=== PATIENT | male | born 1970 | race Caucasian/White ===

== ENCOUNTER → 2017-04-28 | Outpatient (CLI) | payer BC ==
[~2017-04-28] MED LIST: DITR5TAB PO; KETO30IN4; LIPI20TA PO; OXYB5TAB10 PO; TYLE325T5 PO
[2017-04-28 13:30] LABS: BASO # 0.1 K/mm3 (0.0-0.2); BASO % 1.5 % (0.0-1.0); EOS # 0.2 K/mm3 (0.0-0.50); EOS % 4.3 % (0.0-3.0); LARGE UNSTAINED CELL # 0.1 K/mm3 (0.0-0.4); LARGE UNSTAINED CELL % 1.9 % (0.0-4.0); LYMPH # 2.1 K/mm3 (1.5-4.5); MEAN CORPUSCULAR HEMOGLOBIN 31.7 pg (27.0-33.0); MEAN CORPUSCULAR HGB CONC 34.4 g/dl (32.0-36.5); MONO # 0.4 K/mm3 (0.0-0.8); MONO % 6.7 % (0.0-5.0); NEUTROPHILS # 2.8 K/mm3 (1.8-7.7); NEUTROPHILS % 50.5 % (36.0-66.0); PLATELET COUNT, AUTOMATED 218 k/mm3 (150-450); RED CELL DISTRIBUTION WIDTH 12.8 % (11.5-14.5); WHITE BLOOD COUNT 5.6 K/mm3 (4.0-10.0)
[2017-04-28 13:39] LABS: ALKALINE PHOSPHATASE 45 U/L (45-117); ALT/SGPT 73 U/L (12-78); ANION GAP 8 MEQ/L (8-16); AST/SGOT 27 U/L (15-37); BILIRUBIN,TOTAL 0.8 MG/DL (0.2-1.0); BLOOD UREA NITROGEN 14 MG/DL (7-18); CALCIUM LEVEL 8.8 MG/DL (8.5-10.1); CARBON DIOXIDE LEVEL 28 MEQ/L (21-32); CHLORIDE LEVEL 106 MEQ/L (98-107); CHOLESTEROL LEVEL 239 MG/DL (<200); CREATININE FOR GFR 0.99 MG/DL (0.70-1.30); GLOMERULAR FILTRATION RATE > 60.0 (>60); GLUCOSE, FASTING 128 MG/DL (70-105); POTASSIUM SERUM 4.9 MEQ/L (3.5-5.1); SODIUM LEVEL 142 MEQ/L (136-145); TRIGLYCERIDES LEVEL 128 MG/DL (<150)
[2017-04-28 13:40] LABS: TOTAL PROTEIN 6.5 GM/DL (6.4-8.2)
== END ==
LOC: M WUC 10:28
PROVIDERS: ATTEND Nurse Practitioner Family
DX: R53.83 Other fatigue (principal); R73.02 Impaired glucose tolerance (oral); E78.5 Hyperlipidemia, unspecified

== ENCOUNTER → 2017-08-13 | Outpatient (REF) | payer BC | LOC: M SMT 13:56 | PROVIDERS: ATTEND Urology | DX: Z30.2 Encounter for sterilization (principal) ==

== ENCOUNTER 2018-04-05 12:15 | Emergency (ER) | payer BC ==
[2018-04-05 12:45] LABS: RED BLOOD COUNT 5.04 10^6/uL (4.30-6.10); WHITE BLOOD COUNT 7.7 10^3/uL (4.0-10.0)
[2018-04-05 12:46] LABS: BASO # 0.1 10^3/uL (0.0-0.2); BASO % 0.7 % (0.0-1.0); EOS # 0.1 10^3/uL (0.0-0.50); EOS % 1.3 % (0.0-3.0); HEMATOCRIT 45.3 % (42.0-52.0); HEMOGLOBIN 15.8 g/dl (13.5-17.5); IMMATURE GRANULOCYTE % 0.8 % (0-3.0); LYMPH # 1.9 10^3/uL (1.5-4.5); LYMPH % 25.2 % (24.0-44.0); MEAN CORPUSCULAR HEMOGLOBIN 31.3 pg (27.0-33.0); MEAN CORPUSCULAR HGB CONC 34.9 g/dl (32.0-36.5); MEAN CORPUSCULAR VOLUME 89.9 fl (80.0-96.0); MONO # 0.6 10^3/uL (0.0-0.8); MONO % 7.6 % (0.0-5.0); NEUTROPHILS # 4.9 10^3/uL (1.8-7.7); NEUTROPHILS % 64.4 % (36.0-66.0); PLATELET COUNT, AUTOMATED 196 10^3/uL (150-450); RED CELL DISTRIBUTION WIDTH 12.1 % (11.5-14.5)
[2018-04-05 12:56] LABS: INR 1.02; PARTIAL THROMBOPLASTIN TIME 25.8 SECONDS (25.4-37.6); PROTHROMBIN TIME 13.5 SECONDS (12.1-14.4)
[2018-04-05 13:16] LABS: ALBUMIN 3.7 GM/DL (3.2-5.2); ALBUMIN/GLOBULIN RATIO 1.37 (1.00-1.93); ALKALINE PHOSPHATASE 56 U/L (45-117); ALT/SGPT 79 U/L (12-78); ANION GAP 8 MEQ/L (8-16); AST/SGOT 33 U/L (7-37); BILIRUBIN,DIRECT 0.2 MG/DL (0.0-0.2); BILIRUBIN,TOTAL 0.6 MG/DL (0.2-1.0); BLOOD UREA NITROGEN 14 MG/DL (7-18); CALCIUM LEVEL 8.2 MG/DL (8.5-10.1); CARBON DIOXIDE LEVEL 24 MEQ/L (21-32); CHLORIDE LEVEL 107 MEQ/L (98-107); CPK CREATINE PHOSPHOKINASE 201 U/L (39-308); CREATININE FOR GFR 1.09 MG/DL (0.70-1.30); FREE T4 1.06 NG/DL (0.76-1.46); GLOMERULAR FILTRATION RATE > 60.0 (>60); GLUCOSE, FASTING 210 MG/DL (70-100); LIPASE 96 U/L (73-393); POTASSIUM SERUM 4.4 MEQ/L (3.5-5.1); SODIUM LEVEL 139 MEQ/L (136-145); TOTAL PROTEIN 6.4 GM/DL (6.4-8.2); TROPONIN I < 0.02 NG/ML (< 0.10)
[2018-04-05] MEDS: NITROGLYCERIN 0.4 MG SUBL TABLET SL ×3 (13:18→13:31)
[2018-04-05 13:21] LABS: CK-MB VALUE MASS 1.3 NG/ML (<3.6); MB/CK RELATIVE INDEX 0.64 (< OR =4); THYROID STIMULATING HORMONE 0.682 uIU/ML (0.358-3.740)
[2018-04-05] MEDS ORDERED: ISOVUE-370 76% 100ML VIAL (Q9967) As Ordered (14:18)
[2018-04-05] MEDS: MORPHINE 4 MG/ML 1ML VIAL/SYRINGE (J2270) IV ×2 (14:59→16:17)
[2018-04-05] MEDS: ONDANSETRON 4MG/2ML VIAL (J2405) IV (15:51)
[2018-04-05] MEDS: NS 1,000 ML IV (15:55)
[2018-04-05 16:30] LABS: CK-MB VALUE MASS 1.1 NG/ML (<3.6); CPK CREATINE PHOSPHOKINASE 183 U/L (39-308); TROPONIN I < 0.02 NG/ML (< 0.10)
[2018-04-05] MEDS: PANTOPRAZOLE 40MG INJ (PROTONIX) (C9113) IV (17:16)
[2018-04-05] MEDS: GI COCKTAIL 50ML BTL(HYOSCYAMINE/MAALOX/LIDOCAINE VISCOUS)(1:3:1) PO (17:16)
[2018-04-05 20:18] LABS: BEDSIDE GLUCOSE 76 MG/DL (70-105)
[2018-04-05 20:50] LABS: CK-MB VALUE MASS 1.1 NG/ML (<3.6); CPK CREATINE PHOSPHOKINASE 154 U/L (39-308); MB/CK RELATIVE INDEX 0.71 (< OR =4); TROPONIN I < 0.02 NG/ML (< 0.10)
[2018-04-05] MEDS ORDERED: KETOROLAC 30 MG/ML VIAL (J1885) As Ordered (22:26)
[2018-04-05] MEDS: KETOROLAC 30 MG/ML VIAL (J1885) IV (22:30)
== END 2018-04-05 22:58 | disposition home or self-care (01) ==
LOC: M ED 12:15
DX: R07.9 Chest pain, unspecified (principal); E11.9 Type 2 diabetes mellitus without complications; E78.9 Disorder of lipoprotein metabolism, unspecified; Z87.442 Personal history of urinary calculi; Z82.49 Family history of ischemic heart disease and other diseases of the circulatory system; Z79.899 Other long term (current) drug therapy
CPT/HCPCS: C9113

== ENCOUNTER → 2018-04-08 | Outpatient (CLI) | payer BC ==
[2018-04-08 14:05] LABS: CHOLESTEROL LEVEL 187 MG/DL (<200); CHOLESTEROL RISK RATIO 3.666 (<5); HDL CHOLESTEROL 51 MG/DL (>40); LDL CHOLESTEROL 109.8 MG/DL (<100); NON-HDL-C 136 MG/DL; TRIGLYCERIDES LEVEL 131 MG/DL (<150)
== END ==
LOC: M WUC 09:00
DX: E78.4 Other hyperlipidemia (principal)
CPT/HCPCS: 80061

== ENCOUNTER → 2018-04-10 | Outpatient (CLI) | payer BC ==
[~2018-04-10] MED LIST changes: -DITR5TAB PO; +GASTROGRAFIN SOLUTION 30ML (Q9963) As Ordered; +ISOVUE-370 76% 100ML VIAL (Q9967) As Ordered; -KETO30IN4; -LIPI20TA PO; -OXYB5TAB10 PO; -TYLE325T5 PO
== END ==
LOC: M RAD 16:17
DX: R10.9 Unspecified abdominal pain (principal)
CPT/HCPCS: Q9963

== ENCOUNTER → 2018-11-20 | Outpatient (CLI) | payer BC ==
[~2018-11-20] MED LIST changes: +DITR5TAB PO; -GASTROGRAFIN SOLUTION 30ML (Q9963) As Ordered; -ISOVUE-370 76% 100ML VIAL (Q9967) As Ordered; +KETO30IN4; +LIPI20TA PO; +NAPR-50 PO; +OXYB5TAB10 PO; +PROT1TAB2 PO; +TYLE325T5 PO
[2018-11-20 10:06] LABS: CHOLESTEROL RISK RATIO 4.638 (<5)
== END ==
LOC: M WUC 08:05
PROVIDERS: ATTEND Internal Medicine Cardiovascular Disease
DX: E11.9 Type 2 diabetes mellitus without complications (principal); I25.10 Atherosclerotic heart disease of native coronary artery without angina pectoris; Z82.49 Family history of ischemic heart disease and other diseases of the circulatory system

== ENCOUNTER → 2019-06-18 | Outpatient (CLI) | payer BC ==
[~2019-06-18] MED LIST changes: -NAPR-50 PO; +NAPR-837 PO
[2019-06-18 20:10] LABS: CHOLESTEROL RISK RATIO 4.731 (<5)
== END ==
LOC: M WUC 11:17
PROVIDERS: ATTEND Physician Assistant
DX: I25.10 Atherosclerotic heart disease of native coronary artery without angina pectoris (principal)

== ENCOUNTER → 2019-06-18 | Outpatient (CLI) | payer BC ==
[2019-06-18 21:35] LABS: HEMOGLOBIN A1c 7.1 %
== END ==
LOC: M WUC 11:20
PROVIDERS: ATTEND Internal Medicine Cardiovascular Disease
DX: E11.9 Type 2 diabetes mellitus without complications (principal)

== ENCOUNTER → 2019-09-11 | Outpatient (CLI) | payer BC ==
[2019-09-11 13:24] LABS: CHOLESTEROL RISK RATIO 3.428 (<5)
== END ==
LOC: M WUC 09:36
PROVIDERS: ATTEND Internal Medicine Cardiovascular Disease
DX: I25.10 Atherosclerotic heart disease of native coronary artery without angina pectoris (principal); Z82.49 Family history of ischemic heart disease and other diseases of the circulatory system; E11.9 Type 2 diabetes mellitus without complications

== ENCOUNTER → 2020-11-09 | Outpatient (CLI) | payer BC ==
[2020-11-09 13:04] LABS: BASO # 0.1 10^3/uL (0.0-0.2); BASO % 1.3 % (0.0-1.0); EOS # 0.3 10^3/uL (0.0-0.5); EOS % 4.9 % (0.0-3.0); HEMATOCRIT 50.7 % (42.0-52.0); HEMOGLOBIN 17.3 g/dl (13.5-17.5); LYMPH # 2.2 10^3/uL (1.5-5.0); LYMPH % 33.9 % (24.0-44.0); MEAN CORPUSCULAR HEMOGLOBIN 31.7 pg (27.0-33.0); MEAN CORPUSCULAR HGB CONC 34.1 g/dl (32.0-36.5); MEAN CORPUSCULAR VOLUME 92.9 fl (80.0-96.0); MONO # 0.6 10^3/uL (0.0-0.8); MONO % 8.8 % (2.0-8.0); NEUTROPHILS # 3.2 10^3/uL (1.5-8.5); NEUTROPHILS % 50.8 % (36.0-66.0); PLATELET COUNT, AUTOMATED 181 10^3/uL (150-450); RED BLOOD COUNT 5.46 10^6/uL (4.30-6.10); WHITE BLOOD COUNT 6.4 10^3/uL (4.0-10.0)
[2020-11-09 13:46] LABS: ALT/SGPT 58 U/L (12-78); BLOOD UREA NITROGEN 19 MG/DL (7-18); CALCIUM LEVEL 9.2 MG/DL (8.5-10.1); CARBON DIOXIDE LEVEL 27 MEQ/L (21-32); CHLORIDE LEVEL 104 MEQ/L (98-107); CHOLESTEROL LEVEL 165 MG/DL (<200); CHOLESTEROL RISK RATIO 3.437 (<5); CPK CREATINE PHOSPHOKINASE 123 U/L (39-308); CREATININE FOR GFR 0.96 MG/DL (0.70-1.30); FREE T4 0.94 NG/DL (0.76-1.46); GLOMERULAR FILTRATION RATE > 60.0 (>56); GLUCOSE, FASTING 145 MG/DL (70-100); HDL CHOLESTEROL 48 MG/DL (>40); LDL CHOLESTEROL 88 MG/DL (<100); NON-HDL-C 117 MG/DL; POTASSIUM SERUM 4.2 MEQ/L (3.5-5.1); SODIUM LEVEL 139 MEQ/L (136-145); THYROID STIMULATING HORMONE 0.986 uIU/ML (0.358-3.740); TRIGLYCERIDES LEVEL 146 MG/DL (<150)
== END ==
LOC: M WUC 08:57
PROVIDERS: ATTEND Internal Medicine Cardiovascular Disease
DX: I65.21 Occlusion and stenosis of right carotid artery (principal); E78.49 Other hyperlipidemia; I71.2 Thoracic aortic aneurysm, without rupture

== ENCOUNTER 2021-06-05 08:03 | Outpatient (CLI) | payer BC ==
[~2021-06-05] VITALS: Ht 182.9 cm; Wt 113.4 kg
[~2021-06-05 08:03] MED LIST changes: +ALBUTEROL 90 MCG/ACT 8GM HFA INHALER INH PRN; +ALBUTEROL SULFATE 2.5 MG/0.5 ML INH NEB SOLN INH PRN; +EPINEPHrine INJ 1 MG/ML 1ML AMP IM PRN; +NS 1,000 ML IV SCH; +diphenhydrAMINE 50MG/ML VIAL (J1200) IV PRN; +methylPREDNISolone 125MG 2ML VIAL IV PRN
[2021-06-05 08:58] VITALS: BP 139/76
[2021-06-05] MEDS ORDERED: CASIRIVIMAB/IMDEVIMAB 1,200 MG in NS 250 ML IV ONE (10:00)
[2021-06-05 10:24] VITALS: BP 126/74
[2021-06-05 10:56] VITALS: BP 121/74
[2021-06-05 11:51] VITALS: BP 134/79
[2021-06-05 12:58] VITALS: BP 127/77
== END 2021-06-05 13:17 | disposition home or self-care (01) ==
LOC: M OPCLI4PR 08:03 → M 4MAIN 08:30 → M OPCLI4PR 13:17
PROVIDERS: ATTEND Family Medicine
DX: U07.1 COVID-19 (principal)

== ENCOUNTER → 2021-11-14 | Outpatient (CLI) | payer BC ==
[~2021-11-14] MED LIST changes: -ALBUTEROL 90 MCG/ACT 8GM HFA INHALER INH PRN; -ALBUTEROL SULFATE 2.5 MG/0.5 ML INH NEB SOLN INH PRN; -EPINEPHrine INJ 1 MG/ML 1ML AMP IM PRN; -NS 1,000 ML IV SCH; -diphenhydrAMINE 50MG/ML VIAL (J1200) IV PRN; -methylPREDNISolone 125MG 2ML VIAL IV PRN
[2021-11-14 10:14] LABS: CHOLESTEROL RISK RATIO 2.529 (<5)
== END ==
LOC: M WUC 08:31
PROVIDERS: ATTEND Internal Medicine Cardiovascular Disease
DX: Z82.49 Family history of ischemic heart disease and other diseases of the circulatory system (principal); E78.49 Other hyperlipidemia; I65.21 Occlusion and stenosis of right carotid artery

== ENCOUNTER 2022-09-26 21:42 | Emergency (ER) | payer BC ==
[~2022-09-26] VITALS: Ht 180.3 cm; Wt 110.3 kg
[2022-09-26] MEDS ORDERED: KETOROLAC 30 MG/ML 1ML VIAL IV ONE (22:10)
[2022-09-26 22:14] LABS: BASO # 0.1 10^3/uL (0.0-0.2); BASO % 0.9 % (0.0-1.0); EOS # 0.2 10^3/uL (0.0-0.5); EOS % 1.7 % (0.0-3.0); HEMATOCRIT 49.2 % (42.0-52.0); HEMOGLOBIN 16.8 g/dl (13.5-17.5); LYMPH # 1.5 10^3/uL (1.5-5.0); LYMPH % 17.2 % (24.0-44.0); MEAN CORPUSCULAR HEMOGLOBIN 31.3 pg (27.0-33.0); MEAN CORPUSCULAR HGB CONC 34.1 g/dl (32.0-36.5); MEAN CORPUSCULAR VOLUME 91.8 fl (80.0-96.0); MONO # 0.9 10^3/uL (0.0-0.8); MONO % 10.2 % (2.0-8.0); NEUTROPHILS # 6.2 10^3/uL (1.5-8.5); NEUTROPHILS % 69.6 % (36.0-66.0); PLATELET COUNT, AUTOMATED 157 10^3/uL (150-450); RED BLOOD COUNT 5.36 10^6/uL (4.30-6.10); WHITE BLOOD COUNT 8.9 10^3/uL (4.0-10.0)
[2022-09-26 22:49] LABS: BLOOD UREA NITROGEN 26 MG/DL (9-23); CALCIUM LEVEL 9.3 MG/DL (8.5-10.1); CARBON DIOXIDE LEVEL 28 MMOL/L (20-31); CHLORIDE LEVEL 97 MMOL/L (98-107); CREATININE FOR GFR 1.24 MG/DL (0.70-1.30); GLOMERULAR FILTRATION RATE > 60.0 (>56); GLUCOSE, FASTING 414 MG/DL (60-100); POTASSIUM SERUM 4.5 MMOL/L (3.5-5.1); SODIUM LEVEL 134 MMOL/L (136-145)
[2022-09-26] MEDS ORDERED: KETO10TAB PO (22:59)
[2022-09-26] MEDS ORDERED: FLOM0.4C39 PO (22:59)
[2022-09-26] MEDS ORDERED: METO1TAB32 PO (23:10)
[2022-09-26] MEDS ORDERED: INVO100T PO (23:10)
[2022-09-26] MEDS ORDERED: EZET10TA21 PO (23:10)
[2022-09-26] MEDS ORDERED: ROSU40TA4 PO (23:10)
[2022-09-26 23:26] LABS: HEMOGLOBIN A1c 10.3 % (4.0-6.0)
[2022-09-26 23:52] VITALS: BP 139/71
== END 2022-09-26 23:53 | disposition home or self-care (01) ==
LOC: M ED 21:42
DX: N13.30 Unspecified hydronephrosis (principal); E11.9 Type 2 diabetes mellitus without complications; I10 Essential (primary) hypertension; E78.5 Hyperlipidemia, unspecified; Z87.442 Personal history of urinary calculi

== ENCOUNTER → 2022-10-11 | Outpatient (CLI) | payer BC ==
[~2022-10-11] MED LIST changes: +EZET10TA21 PO; +FLOM0.4C39 PO; +INVO100T PO; +KETO10TAB PO; +METO1TAB32 PO; +ROSU40TA4 PO
== END ==
LOC: M RAD 08:53
PROVIDERS: ATTEND Physician Assistant
DX: N20.1 Calculus of ureter (principal)

== ENCOUNTER → 2022-10-27 | Outpatient (CLI) | payer BC ==
[~2022-10-27] MED LIST changes: +METF10004 PO
== END ==
LOC: M LABSMTC 11:51
PROVIDERS: ATTEND Anesthesiology
DX: Z01.812 Encounter for preprocedural laboratory examination (principal)

== ENCOUNTER 2022-10-31 07:54 | Day surgery (SDC) | payer BC ==
[~2022-10-31] VITALS: Ht 180.3 cm; Wt 108.4 kg
[~2022-10-31 07:54] MED LIST changes: +ceFAZolin SOD 2 GM in IV 1 EA IV ONE
[2022-10-31] MEDS ORDERED: MIDAZOLAM INJ 2MG/2ML VIAL As Ordered ONE (08:07)
[2022-10-31] MEDS ORDERED: LIDOCAINE 2% 100MG/5ML SDV (FOR ANES.) As Ordered ONE (08:07)
[2022-10-31] MEDS ORDERED: propofoL 500 MG/50 ML VIAL As Ordered ONE (08:07)
[2022-10-31] MEDS ORDERED: fentaNYL 100 MCG/2 ML INJECTION As Ordered ONE (08:07)
[2022-10-31] MEDS ORDERED: LR 1,000 ML IV SCH (08:10)
[2022-10-31] MEDS ORDERED: INSULIN LISPRO (NovoLOG) PER UNIT SC PRN (09:00)
[2022-10-31 10:55] VITALS: BP 121/79
== END 2022-10-31 11:04 | disposition home or self-care (01) ==
LOC: M SDC 07:54
PROVIDERS: ATTEND Urology
DX: N20.0 Calculus of kidney (principal); E11.9 Type 2 diabetes mellitus without complications; R25.1 Tremor, unspecified; Z87.442 Personal history of urinary calculi; Z95.5 Presence of coronary angioplasty implant and graft; Z79.899 Other long term (current) drug therapy; Z79.2 Long term (current) use of antibiotics; Z79.84 Long term (current) use of oral hypoglycemic drugs; Z79.82 Long term (current) use of aspirin
CPT/HCPCS: 50590; 74018; J0690; J1815; J2250; J3010

== ENCOUNTER → 2024-04-14 | Outpatient (CLI) | payer BC ==
[~2024-04-14] MED LIST changes: -OXYB5TAB10 PO; +OXYB5TAB14 PO; -ROSU40TA4 PO; +ROSU40TA63 PO; -ceFAZolin SOD 2 GM in IV 1 EA IV ONE
[2024-04-14 13:25] LABS: BASO # 0.1 10^3/uL (0.0-0.2); BASO % 1.5 % (0.0-1.0); EOS # 0.2 10^3/uL (0.0-0.5); EOS % 3.8 % (0.0-3.0); HEMATOCRIT 50.4 % (42.0-52.0); LYMPH # 1.8 10^3/uL (1.5-5.0); LYMPH % 33.8 % (24.0-44.0); MEAN CORPUSCULAR HEMOGLOBIN 30.7 pg (27.0-33.0); MEAN CORPUSCULAR HGB CONC 33.7 g/dl (32.0-36.5); MEAN CORPUSCULAR VOLUME 91.1 fl (80.0-96.0); MONO # 0.5 10^3/uL (0.0-0.8); MONO % 10.1 % (2.0-8.0); NEUTROPHILS # 2.7 10^3/uL (1.5-8.5); NEUTROPHILS % 50.4 % (36.0-66.0); PLATELET COUNT, AUTOMATED 171 10^3/uL (150-450); RED BLOOD COUNT 5.53 10^6/uL (4.30-6.10); WHITE BLOOD COUNT 5.3 10^3/uL (4.0-10.0)
[2024-04-14 13:52] LABS: HEMOGLOBIN A1c 12.8 % (4.0-6.0)
[2024-04-14 13:57] LABS: CREATININE, URINE 47.7 MG/DL; MAU/CREAT RATIO 46.1 MCG/MG (0.0-30.0)
[2024-04-14 13:58] LABS: ALBUMIN 3.9 G/DL (3.2-5.2); ALKALINE PHOSPHATASE 61 U/L (46-116); ALT/SGPT 53 U/L (7.0-40); AST/SGOT 20 U/L (<34); BILIRUBIN,TOTAL 0.5 MG/DL (0.3-1.2); BLOOD UREA NITROGEN 22 MG/DL (9-23); CALCIUM LEVEL 9.4 MG/DL (8.5-10.1); CARBON DIOXIDE LEVEL 27 MMOL/L (20-31); CHLORIDE LEVEL 104 MMOL/L (98-107); CHOLESTEROL LEVEL 174 MG/DL (<200); GLOMERULAR FILTRATION RATE > 60.0 (>56); GLUCOSE, FASTING 310 MG/DL (60-100); HDL CHOLESTEROL 42.4 MG/DL (>40); LDL CHOLESTEROL 93.6 MG/DL (<100); NON-HDL-C 131.6 MG/DL; SODIUM LEVEL 138 MMOL/L (136-145); TOTAL PROTEIN 6.3 G/DL (5.7-8.2); TRIGLYCERIDES LEVEL 190 MG/DL (<150)
== END ==
LOC: M WUC 09:18
PROVIDERS: ATTEND Family Medicine
DX: E11.9 Type 2 diabetes mellitus without complications (principal)

== ENCOUNTER → 2024-09-08 | Outpatient (CLI) | payer BC ==
[~2024-09-08] MED LIST changes: -ROSU40TA63 PO; +ROSU40TA81 PO
[2024-09-08 12:39] LABS: BASO # 0.1 10^3/uL (0.0-0.2); BASO % 1.4 % (0.0-1.0); EOS # 0.1 10^3/uL (0.0-0.5); EOS % 2.5 % (0.0-3.0); HEMATOCRIT 48.9 % (42.0-52.0); HEMOGLOBIN 16.6 g/dl (13.5-17.5); LYMPH # 1.6 10^3/uL (1.5-5.0); LYMPH % 33.7 % (24.0-44.0); MEAN CORPUSCULAR HEMOGLOBIN 30.9 pg (27.0-33.0); MEAN CORPUSCULAR HGB CONC 33.9 g/dl (32.0-36.5); MEAN CORPUSCULAR VOLUME 90.9 fl (80.0-96.0); MONO # 0.4 10^3/uL (0.0-0.8); MONO % 7.8 % (2.0-8.0); NEUTROPHILS # 2.6 10^3/uL (1.5-8.5); NEUTROPHILS % 54.4 % (36.0-66.0); PLATELET COUNT, AUTOMATED 177 10^3/uL (150-450); RED BLOOD COUNT 5.38 10^6/uL (4.30-6.10); WHITE BLOOD COUNT 4.9 10^3/uL (4.0-10.0)
[2024-09-08 14:10] LABS: GC DNA AMPLIFICATION NEGATIVE (NEGATIVE)
[2024-09-08 14:15] LABS: ALBUMIN 3.6 G/DL (3.2-5.2); ALKALINE PHOSPHATASE 49 U/L (40-129); ALT/SGPT 34 U/L (7.0-40); AST/SGOT 18 U/L (<34); BILIRUBIN,TOTAL 0.8 MG/DL (0.3-1.2); BLOOD UREA NITROGEN 22 MG/DL (9-23); CALCIUM LEVEL 8.9 MG/DL (8.5-10.1); CARBON DIOXIDE LEVEL 24 MMOL/L (20-31); CHLORIDE LEVEL 106 MMOL/L (98-107); CREATININE FOR GFR 0.76 MG/DL (0.70-1.30); GLOMERULAR FILTRATION RATE > 60.0 (>56); GLUCOSE, FASTING 210 MG/DL (60-100); SODIUM LEVEL 141 MMOL/L (136-145); TOTAL PROTEIN 6.2 G/DL (5.7-8.2)
[2024-09-08 14:26] LABS: HEPATITIS B SURFACE ANTIGEN NEGATIVE (NEGATIVE)
[2024-09-08 14:39] LABS: HIV 1&2 SCREEN NEGATIVE (NEGATIVE)
[2024-09-08 14:48] LABS: HEPATITIS C VIRUS ABY INDEX < 0.02 INDEX (<0.8)
[2024-09-08 16:49] LABS: HEPATITIS B CORE ANTIBODY IGM NEGATIVE (NEGATIVE)
== END ==
LOC: M WUC 08:31
PROVIDERS: ATTEND Family Medicine
DX: Z72.51 High risk heterosexual behavior (principal); E11.9 Type 2 diabetes mellitus without complications

== ENCOUNTER → 2025-08-29 | Outpatient (CLI) | payer BC ==
[~2025-08-29] MED LIST changes: -EZET10TA21 PO; +EZET10TA57 PO; -FLOM0.4C39 PO; +TAMS-18 PO
[2025-08-29 12:27] LABS: APPEARANCE, URINE CLEAR (CLEAR); BACTERIA, URINE AUTO NEGATIVE (NEGATIVE); BILIRUBIN, URINE AUTO NEGATIVE (NEGATIVE); BLOOD, URINE BLOOD NEGATIVE (NEGATIVE); GLUCOSE, URINE (UA) AUTO NEGATIVE (NEGATIVE); KETONE, URINE AUTO NEGATIVE (NEGATIVE); LEUKOCYTE ESTERASE, URINE AUTO NEGATIVE (NEGATIVE); MUCUS, URINE SMALL (NEGATIVE); NITRITE, URINE AUTO NEGATIVE (NEGATIVE); PROTEIN, URINE AUTO NEGATIVE (NEGATIVE); RBC, URINE AUTO 0 /HPF (0-3); SPECIFIC GRAVITY URINE AUTO 1.005 (1.002-1.035); SQUAMOUS EPITHELIAL CELL UR AU 0 /HPF (0-6); UROBILINOGEN, URINE AUTO 0.2 mg/dL (0.0-2.0); WBC, URINE AUTO 0 /HPF (0-3)
[2025-08-29 12:33] LABS: BASO # 0.1 10^3/uL (0.0-0.2); BASO % 1.7 % (0.0-1.0); EOS # 0.2 10^3/uL (0.0-0.5); EOS % 3.6 % (0.0-3.0); LYMPH # 1.7 10^3/uL (1.5-5.0); LYMPH % 31.7 % (24.0-44.0); MONO # 0.5 10^3/uL (0.0-0.8); MONO % 10.1 % (2.0-8.0); NEUTROPHILS # 2.8 10^3/uL (1.5-8.5); NEUTROPHILS % 52.7 % (36.0-66.0); PLATELET COUNT, AUTOMATED 192 10^3/uL (150-450)
[2025-08-29 12:36] LABS: ALT/SGPT 34 U/L (7.0-40); AST/SGOT 22 U/L (<34); CALCIUM LEVEL 9.0 MG/DL (8.5-10.1); CARBON DIOXIDE LEVEL 28 MMOL/L (20-31); CHLORIDE LEVEL 103 MMOL/L (98-107); CREATININE FOR GFR 0.85 MG/DL (0.70-1.30); GLOMERULAR FILTRATION RATE > 90.0 (>56); POTASSIUM SERUM 4.4 MMOL/L (3.5-5.1); PROSTATIC SPECIFIC AG MONITOR 0.59 NG/ML (< 4.00); SODIUM LEVEL 140 MMOL/L (136-145)
[2025-08-29 13:09] LABS: ESTIMATED AVERAGE GLUCOSE 286.0 MG/DL (60-110)
[2025-08-29 13:10] LABS: CREATININE, URINE 35.9 MG/DL; MALB URINE SIEMENS < 3.0 MG/L
== END ==
LOC: M WUC 08:45
PROVIDERS: ATTEND Family Medicine
DX: E11.9 Type 2 diabetes mellitus without complications (principal); R53.81 Other malaise; Z12.5 Encounter for screening for malignant neoplasm of prostate